=== PATIENT | female | born 1975 | race Caucasian/White ===

== ENCOUNTER → 2024-09-30 | Outpatient (CLI) | payer SELFPAY, OTHER ==
--- NOTE | 2024-09-30 09:15 | BI_ITS ---
EXAM: DIAG MAMM W/CAD, BILAT 09/30/2024 CLINICAL HISTORY: F, Age 49 y/o , LT BREAST. Fullness in the left upper-outer quadrant. TECHNIQUE: DIAG MAMM W/CAD, BILAT. COMPARISON: Baseline study. FINDINGS: TISSUE DENSITY: The breasts are extremely dense, which lowers the sensitivity of mammography. Bilateral Breast Mammographic Findings: No significant masses, calcifications or other abnormalities are identified. With the patient's history of fullness in the upper-outer quadrant of the left breast, targeted ultrasound correlation recommended. Focal calcification seen within a tiny nodule in the deep retroareolar region of the right breast suggestive of fibroadenoma. 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 With the patient's history of fullness in the left breast, sonographic correlation recom mended. OVERALL FINAL ASSESSMENT BI-RADS 0: INCOMPLETE - NEED ADDITIONAL IMAGING EVALUATION. RECOMMENDATION: Ultrasound Recommended A letter with findings and recommendations will be mailed to the patient. Reading Location: [place] [id number]
--- NOTE | 2024-09-30 09:16 | US_ITS ---
PROCEDURE: BREAST LIMITED UNILATERAL 09/30/2024 REASON FOR EXAM: F, Age 49 y/o , LT BREAST Fullness in the upper lateral aspect of the left breast. COMPARISON: Prior mammogram done earlier in the day.. TECHNIQUE: BREAST LIMITED UNILATERAL. The upper-outer quadrant of the left breast was examined with ultrasound. FINDINGS: Dense fibroglandular tissue. There is a 9 mm x 7 mm x 6 mm cyst at the 2 o'clock position of the breast at 6 cm from the nipple. Dilated ducts are seen as well. US/Breast Limited Unilateral IMPRESSION: 9 mm x 7 mm x 6 mm cyst at the 2 o'clock position of the breast at 6 cm from th e nipple. Dilated ducts. BI-RADS 2: BENIGN RECOMMENDATION: Routine annual follow-up in 1 Year Reading Location: [place] [id number]
== END | disposition home or self-care (01) ==
LOC: OPBI 09:13
PROVIDERS: PCP Family Medicine; Referring Provider Family Medicine; Visit Provider Family Medicine
DX: N60.02 Solitary cyst of left breast (principal)
CPT/HCPCS: 76642; 77062; 77066; G0279